=== PATIENT | female | born 2000 | race Caucasian/White ===

== ENCOUNTER 2023-12-25 16:23 | Emergency (ER) | payer OTHER, SELFPAY ==
[2023-12-25 16:27] VITALS: BP 154/88
--- NOTE | 2023-12-25 18:04 | ED.GENMED ---
History of Present Illness
General
Chief Complaint: Head Injury
Time Seen by Provider: 12/25/23 17:44
History of Present Illness
History of Present Illness:
23-year-old female presents the emergency department for evaluation of a persistent headache for the past 4 to 5 days. Reports that 5 days ago she suffered a minor head injury when she hit her head on a window, she states there was minimal symptoms
at that time however the next day she woke up with a right-sided headache. She has taken occasional doses of Tylenol or ibuprofen without relief. Denies any vision changes, extremity paresthesias, nausea, or vomiting. She also reports bilateral
neck discomfort. Does not take any blood thinners. States symptoms are not comparable to her past concussion
Past History
Past History
ED Past Medical History: None; Negative Asthma, HTN, Hypercholesterolemia or NIDDM
ED Past Surgical History: None
Social History
Tobacco: Non-smoker
Alcohol: Occasional
Personal: Single
[place]
Review of Systems
Review of Systems
Allergies reviewed?: Yes
All Other Systems: ROS reviewed and negative except as documented in HPI and ROS
Phy Exam
Physical Exam
Physical Exam:
GEN: Well appearing, NAD, WDWN
HEENT: Normocephalic and atraumatic, oral mucosa moist, no scleral icterus, no nasal congestion
Cardiac: Regular rate
Lung: No respiratory distress, no tachypnea
MSK: No gross deformity or injuries
Skin: Good color, no pallor or jaundice, no rashes
Neuro: AO x3; CN II-XII grossly intact. BUE strength 5/5 in all salas, sensation intact and symmetric. BLE strength 5/5 in all salas, sensation intact and symmetric
Psych: Calm, cooperative
Course
Orders/Labs/Results
Orders:
Orders
12/25/23 18:03
Ketorolac [Toradol] 15 mg IV NOW STA
Metoclopramide [Reglan] 10 mg IV NOW STA
12/25/23 19:24
Diphenhydramine [Benadryl] 12.5 mg IV NOW STA
Vital Signs
Initial and Last Documented VS:
Initial Vital Signs
Temp Pulse Resp BP Pulse Ox
98.3 F 104 20 154/88 99
12/25/23 16:27 12/25/23 16:27 12/25/23 16:27 12/25/23 16:27 12/25/23 16:27
Last Documented Vital Signs
Temp Pulse Resp BP Pulse Ox
98.3 F 104 20 154/88 99
12/25/23 16:27 12/25/23 16:27 12/25/23 16:27 12/25/23 16:27 12/25/23 16:27
MDM/Problems Addressed
MDM/Problems Addressed:
Treated patient for acute headache with resolution of symptoms. She has neurologically intact and there are no findings that would warrant CT of the head taking 5 days after minor traumatic injury. Discussed supportive care and return parameters
*Critical Care Note
Total Time (30-74mins, 75-104mins- exclusive of procedures): Not Applicable
ED Attending Note
-
Portions of this chart may have been created with voice recognition software.� Occasional wrong word or��sound alike� substitutions may have occurred due to the inherent limitations of voice recognition software.
Discharge Plan
Departure
Patient Disposition: Home (Routine Discharge)
Date of Disposition: 12/25/23
Time of Disposition: :24
Patient with high blood pressure during this ER visit?: No
Discharge Problem:
Headache
Instructions: Headache, Adult ED
Prescriptions:
No Action
No Current Medications
0
Referrals:
NONE,* [Family Provider] -
Interventions
Interventions:
*Risk Screen - Suicide Last Done: 12/25/23 16:27
*General Assessment Last Done: 12/25/23 16:27
*Neglect/Abuse Screening Last Done: 12/25/23 16:27
ED- Fall Risk Assessment Last Done: 12/25/23 19:33
*ED COVID-19 Vaccine History Last Done: 12/25/23 19:33
*Nursing Disposition Last Done: 12/25/23 19:33
ED- Neurological Assessment Last Done: 12/25/23 19:33
ED-Skin Assessment Last Done: 12/25/23 19:33
Discharge Date and Time
Discharge Date/Time: 12/25/23 19:34
Print Language: WOLOF
[2023-12-25] MEDS: REGLAN 10 MG IV (18:19)
[2023-12-25] MEDS: TORADOL 15 MG IV (18:19)
[2023-12-25] MEDS: BENADRYL 12.5 MG IV (19:27)
== END 2023-12-25 19:34 | disposition home or self-care (01) ==
LOC: EMR 16:23
PROVIDERS: EMERGENCY PHYSICIAN Emergency Medicine
DX: R51.9 Headache, unspecified (principal)
CPT/HCPCS: 99284; 96374; 96375 ×2